=== PATIENT | female | born 1970 | race Two or more races ===

== ENCOUNTER 2018-10-15 07:14 | Emergency (ER) | payer OTHER ==
[~2018-10-15] VITALS: Ht 160 cm; Wt 63.4 kg
[~2018-10-15 07:14] MED LIST: LEVE500T53 PO; LEVO75TA PO
--- NOTE | 2018-10-15 07:50 | NUR ---
SEE TRIAGE NOTE. COMPUTER RECORD REVIEWED FROM PAST VISITS, PT WITH HX OF ETOH WITHDRAWAL SEIZURES. PT ADMITS TO DRINKING LAST NIGHT. PT DENIES INJURY, NO VISIBLE INJURIES. PT ARRIVED IN CLEAN, PRESSED CLOTHES. NO INCONTINENCE, NO ORAL TRAUMA. PT PLACED ON BP CUFF, PULSE OX, HEART MONITOR. SEIZURE PADS IN PLACE. WARM BLANKET PROVIDED, CALL LIGHT WITHIN REACH.
[2018-10-15 08:05] LABS: BASOPHILS # (AUTO) 0.03 x10^3/uL (0-0.1); BASOPHILS % (AUTO) 1 % (0-1); EOSINOPHILS # (AUTO) 0.13 x10^3/uL (0-0.4); EOSINOPHILS % (AUTO) 2 % (1-7); LYMPHOCYTES # (AUTO) 2.32 x10^3/uL (1-3.4); LYMPHOCYTES % (AUTO) 37 % (22-44); MD NO; MEAN CORPUSCULAR HEMOGLOBIN 31.9 pg (27.0-34.8); MEAN CORPUSCULAR HGB CONC 33.1 g/dL (32.4-35.8); MEAN CORPUSCULAR VOLUME 96.4 fL (80-100); MEAN PLATELET VOLUME 9.2 fL (7.4-10.4); MONOCYTES # (AUTO) 0.33 x10^3/uL (0.2-0.8); MONOCYTES % (AUTO) 5 % (2-9); NEUTROPHILS # (AUTO) 3.51 x10^3/uL (1.8-6.8); NEUTROPHILS % (AUTO) 56 % (42-75); PLATELET COUNT 233 x10^3/uL (130-400); RED BLOOD COUNT 4.21 x10^6/uL (3.82-5.3); RED CELL DISTRIBUTION WIDTH 13.3 % (9.6-15.2)
[2018-10-15 08:18] LABS: ALANINE AMINOTRANSFERASE 27 U/L (12-78); ALBUMIN 3.9 g/dL (3.4-5.0); ANION GAP 7 mmol/L (5-15); CALCIUM 8.8 mg/dL (8.5-10.1); CHLORIDE 109 mmol/L (98-107); CREATININE 0.61 mg/dL (0.55-1.02)
[2018-10-15 08:23] LABS: ALKALINE PHOSPHATASE 90 U/L (45-117); BILIRUBIN,TOTAL 0.2 mg/dL (0.2-1.0); TOTAL PROTEIN 7.5 g/dL (6.4-8.2); TROPONIN I < 0.015 ng/mL (0.000-0.045)
--- NOTE | 2018-10-15 08:41 | NUR ---
PT ASSISTED UP TO BSC FOR UA. URINE COLLECTED/SENT TO LAB. VSS/UPDATED IN COMPUTER.
[2018-10-15 08:54] LABS: MICROSCOPIC AUTO
[2018-10-15 08:57] LABS: CULTURE INDICATED? NO
--- NOTE | 2018-10-15 09:05 | NUR ---
ALL RESULTS BACK, PT FOR RECHECK.
--- NOTE | 2018-10-15 10:19 | NUR ---
PT A/O X 3, ABLE TO AMBULATE WITH STEADY GAIT. PT DISCHARGED HOME, PT WITH PLAN TO CALL GF FOR RIDE HOME.
[2018-10-15 10:20] VITALS: BP 121/64
== END 2018-10-15 10:22 | disposition home or self-care (01) ==
LOC: ED 08:54
DX: F10.120 Alcohol abuse with intoxication, uncomplicated (principal); F17.200 Nicotine dependence, unspecified, uncomplicated; G40.909 Epilepsy, unspecified, not intractable, without status epilepticus
CPT/HCPCS: 36415; 80053; 80307; 81001; 82140; 83605; 84484; 85025; 93005; 99284